=== PATIENT | female | born 1930 | race Asian ===

== ENCOUNTER 2018-01-14 12:08 | Inpatient (IN) | payer MEDICAID, OTHER ==
[~2018-01-14] VITALS: Ht 149.9 cm; Wt 70.3 kg
[~2018-01-14 12:08] MED LIST: ACTOS30 MG ORAL; CRESTOR20 MG ORAL; JANUVIA100 MG ORAL; LIDODERM700 M1 TOPIC; LORAZEPAM1 MG ORAL; MS CONTIN30 MG PO; NOVOLOG100 UNIT/3 SUBQ; OXYCODONE HCL30 MG ORAL; QUETIAPINE FUMA25 MG ORAL; RESTORIL30 MG ORAL; STARLIX120 MG PO; crestor PO; hctz PO; januvia PO; losartan PO; metoprolol PO
[2018-01-14] MEDS ORDERED: DiphenhydrAMINE 50mg/ml Inj IVP ONE (12:15)
[2018-01-14] MEDS ORDERED: Metoclopramide 10mg/2ml Inj IVP ONE (12:15)
[2018-01-14] MEDS ORDERED: NORCO 10-325 T1 EACH ORAL (12:17)
[2018-01-14] MEDS ORDERED: CYMBALTA30 MG ORAL (12:17)
[2018-01-14 12:20] VITALS: BP 201/63
--- NOTE | 2018-01-14 12:23 | Emergency Room Report ---
History of Present Illness General Chief Complaint: Altered Level of Consciousness Source: Patient, Family Member Present Illness HPI Patient presents with altered mentation. According to my staff she had to be helped into a wheelchair from the car. She was not responsive at that time however after being placed in a gurney she was able to answer questions. She complains of abdominal and genital pain. She states she's having difficulty moving her bowels. She denies any chest pain. She has anxiety. Son multiple medications at this time. She moved her bowels twice yesterday, but small amounts and hard. No fevers. Son states when she is altered this way, she usually has an UTI. She is on Seroquel and apparently did not take it last night. An Accu-Chek was done here that was 134. Allergies: Coded Allergies: CODEINE (Unverified Allergy, Unknown, 08/19/12) AYAAN INHIBITORS (Verified Allergy, 08/18/12) Patient History Past Medical History: see triage record Past Surgical History: keeley, hysterectomy, other - knee replacement Social History Narrative with her son Reviewed Nursing Documentation: PMH: Agreed; PSxH: Agreed Nursing Documentation-PMH Past Medical History: No History, Except For Hx Cardiac Problems: Yes Hx Hypertension: Yes Hx COPD: Yes Hx Diabetes: Yes Hx Cancer: No Hx Gastrointestinal Problems: Yes Hx Neurological Problems: Yes - ALOC Hx Dizziness: Yes Hx Syncope: Yes Hx Weakness: Yes Review of Systems All Other Systems: negative except mentioned in HPI Physical Exam Vital Signs Date Time Temp Pulse Resp B/P (MAP) Pulse Ox O2 Delivery O2 Flow Rate FiO2 01/14/18 12:10 98.4 68 16 201/63 97 Room Air 98.4 Sp02 EP Interpretation: reviewed, normal General Appearance: no apparent distress, lethargic, Chronically Ill Head: normocephalic, atraumatic Eyes: bilateral eye PERRL, bilateral eye other - lid twitching to touch ENT: moist mucus membranes, other - +gag Neck: supple Respiratory: lungs clear, normal breath sounds Cardiovascular #1: regular rate, rhythm Cardiovascular #2: 2+ radial (R) Gastrointestinal: normal inspection, normal bowel sounds, no mass, non- distended, tenderness - R flank and RUQ Genitourinary: no CVA tenderness Musculoskeletal: back normal, normal range of motion Neurologic: responsive - minimally initially, DTRs symmetric, sensory intact, no Babinski - withdrawal, other - flaccid initially Psychiatric: other - lethargic Skin: normal inspection, warm/dry Medical Decision Making Diagnostic Impression: Primary Impression: Altered level of consciousness Additional Impressions: Exacerbation of chronic pain Dehydration Declining functional status Constipation Qualified Codes: K59.00 - Constipation, unspecified ER Course Initially the patient was unresponsive with her eyes shut. She had a gag reflex. After being transported the gurney she was more responsive and started complaining about abdominal pain and difficulty moving her bowels. Differential includes stroke, acute myocardial infarction, constipation, electrolyte abnormality, occult infection amongst others. Her blood sugar was checked immediately and this was not the problem. Evaluation with EKG, chest x- ray, abdominal series and also labs. At this point the patient does not have a focal neurologic exam and CT is not indicated. Post keeley, therefore R flank pain not related to gall bladder. Exam is not surgical. EKG without injury. CXR no infiltrate. Labs essentially normal with no pyuria. Improved mentation with non-focal neurological exam. Cooperative and smiling. Patient requested medication for pain. Treated. Now wanting to go home. Son states not at baseline and something is wrong. Given dose of seroquel. Admit for further neurologic evaluation. Signed out to Dr. Morrison. Laboratory Tests Test 01/14/18 12:35 01/14/18 12:50 Urine Color Yellow Urine Appearance Clear Urine pH 7 (4.5-8.0) Urine Specific [place] 1.010 (1.005-1.035) Urine Protein 1+ (NEGATIVE) H Urine Glucose (UA) Negative (NEGATIVE) Urine Ketones 3+ (NEGATIVE) H Urine Occult Blood 1+ (NEGATIVE) H Urine Nitrite Negative (NEGATIVE) Urine Bilirubin Negative (NEGATIVE) Urine Urobilinogen Normal MG/DL (0.0-1.0) Urine Leukocyte Esterase Negative (NEGATIVE) Urine RBC 2-4 /HPF (0 - 2) H Urine WBC 0-2 /HPF (0 - 2) Urine Squamous Epithelial Cells Occasional /LPF Urine Bacteria Occasional /HPF (NONE) White Blood Count 9.2 K/UL (4.8-10.8) Red Blood Count 3.87 M/UL (4.20-5.40) L Hemoglobin 11.1 G/DL (12.0-16.0) L Hematocrit 34.7 % (37.0-47.0) L Mean Corpuscular Volume 90 FL (80-99) Mean Corpuscular Hemoglobin 28.7 PG (27.0-31.0) Mean Corpuscular Hemoglobin Concent 32.0 G/DL (32.0-36.0) Red Cell Distribution Width 12.7 % (11.6-14.8) Platelet Count 360 K/UL (150-450) Mean Platelet Volume 5.2 FL (6.5-10.1) L Neutrophils (%) (Auto) 72.0 % (45.0-75.0) Lymphocytes (%) (Auto) 20.5 % (20.0-45.0) Monocytes (%) (Auto) 5.3 % (1.0-10.0) Eosinophils (%) (Auto) 1.5 % (0.0-3.0) Basophils (%) (Auto) 0.7 % (0.0-2.0) Prothrombin Time 10.4 SEC (9.30-11.50) Prothrombin Time INR 1.0 (0.9-1.1) PTT 34 SEC (23-33) H Sodium Level 135 MMOL/L (136-145) L Potassium Level 4.1 MMOL/L (3.5-5.1) Chloride Level 101 MMOL/L (98-107) Carbon Dioxide Level 22 MMOL/L (21-32) Anion Gap 12 mmol/L (5-15) Blood Urea Nitrogen 19 mg/dL (7-18) H Creatinine 1.1 MG/DL (0.55-1.30) Estimate Glomerular Filtration Rate mL/min (>60) Glucose Level 153 MG/DL (74-106) H Calcium Level 8.7 MG/DL (8.5-10.1) Total Bilirubin 0.7 MG/DL (0.2-1.0) Aspartate Amino Transferase (AST) 53 U/L (15-37) H Alanine Aminotransferase (ALT) 20 U/L (12-78) Alkaline Phosphatase 159 U/L (46-116) H Troponin I 0.005 ng/mL (0.000-0.056) Total Protein 8.3 G/DL (6.4-8.2) H Albumin 3.4 G/DL (3.4-5.0) Globulin 4.9 g/dL Albumin/Globulin Ratio 0.7 (1.0-2.7) L Lipase 53 U/L (73-393) L EKG Diagnostic Results Rate: normal Rhythm: NSR ST Segments: no acute changes Rhythm Strip Diag. Results EP Interpretation: yes Rhythm: NSR, no PVC's, no ectopy Chest X-Ray Diagnostic Results Chest X-Ray Diagnostic Results : Chest X-Ray Ordered: Yes # of Views/Limited/Complete: 1 View Indication: Other EP Interpretation: Yes Interpretation: no consolidation, no effusion, no pneumothorax Impression: No acute disease Electronically Signed by: Ernesto Golden MD Other X-Ray Diagnostic Results Other X-Ray Diagnostic Results : X-Ray ordered: abd # of Views/Limited Vs Complete: 1 View Indication: Pain Interpretation: nonspecific bowel gas, no sbo, other - inc stool Impression: Other Electronically Signed by: Ernesto Golden MD Last Vital Signs Date Time Temp Pulse Resp B/P (MAP) Pulse Ox O2 Delivery O2 Flow Rate FiO2 01/14/18 22:12 97.9 66 20 172/95 94 97.9 01/14/18 17:20 Room Air Status: improved Disposition: ADMITTED INPATIENT Condition: Serious Ernesto Golden M.D. January 14, 2018 12:23
[2018-01-14 13:04] LABS: BASOPHILS % (AUTO) 0.7 % (0.0-2.0); EOSINOPHILS % (AUTO) 1.5 % (0.0-3.0); HEMATOCRIT 34.7 % (37.0-47.0); HEMOGLOBIN 11.1 G/DL (12.0-16.0); LYMPHOCYTES % (AUTO) 20.5 % (20.0-45.0); MEAN CORPUSCULAR VOLUME 90 FL (80-99); MONOCYTES % (AUTO) 5.3 % (1.0-10.0); PLATELET COUNT 360 K/UL (150-450); RED BLOOD COUNT 3.87 M/UL (4.20-5.40); RED CELL DISTRIBUTION WIDTH 12.7 % (11.6-14.8); WHITE BLOOD COUNT 9.2 K/UL (4.8-10.8)
[2018-01-14 13:17] LABS: APPEARANCE,URINE CLEAR; BILIRUBIN, URINE NEGATIVE (NEGATIVE); GLUCOSE, URINE (UA) NEGATIVE (NEGATIVE); KETONES,URINE 3+ (NEGATIVE); LEUKOCYTE ESTERASE ,URINE NEGATIVE (NEGATIVE); NITRITE,URINE NEGATIVE (NEGATIVE); PH,URINE 7 (4.5-8.0); PROTEIN,URINE 1+ (NEGATIVE); UROBILINOGEN,URINE NORMAL MG/DL (0.0-1.0)
[2018-01-14 13:21] LABS: COLOR,URINE YELLOW
[2018-01-14 13:26] LABS: ANION GAP 12 mmol/L (5-15); BLOOD UREA NITROGEN 19 mg/dL (7-18); CALCIUM 8.7 MG/DL (8.5-10.1); CARBON DIOXIDE 22 MMOL/L (21-32); CHLORIDE 101 MMOL/L (98-107); CREATININE 1.1 MG/DL (0.55-1.30); POTASSIUM 4.1 MMOL/L (3.5-5.1); SODIUM 135 MMOL/L (136-145)
--- NOTE | 2018-01-14 13:26 | Diagnostic Imaging Report ---
Indication: Pain Technique: XRAY Abdomen 1v Comparison: None Findings: Nonspecific, not overtly obstructive bowel gas pattern. No evidence to suggest free intraperitoneal air. There are degenerative changes in the spine. No acute osseous abnormality seen. There are some pelvic phleboliths. Imaged lung bases are grossly clear. There are atherosclerotic calcifications. IMPRESSION: Nonspecific, not overtly obstructive bowel gas pattern.
--- NOTE | 2018-01-14 13:27 | Diagnostic Imaging Report ---
Indication: Pain Technique: XRAY Chest 1v Comparison: 04/14/2013 Findings: Stable cardiomegaly. Atherosclerotic calcifications noted. There is nonspecific increased interstitial markings, similar to prior exams. No definite focal airspace consolidation, pleural effusion or pneumothorax. No acute osseous abnormality. IMPRESSION: No radiographic evidence of acute cardiopulmonary disease
[2018-01-14 13:30] LABS: ALANINE AMINOTRANSFERASE 20 U/L (12-78); ALBUMIN 3.4 G/DL (3.4-5.0); ALBUMIN/GLOBULIN RATIO 0.7 (1.0-2.7); ALKALINE PHOSPHATASE 159 U/L (46-116); ASPARTATE AMINO TRANSFERASE 53 U/L (15-37); BILIRUBIN,TOTAL 0.7 MG/DL (0.2-1.0)
[2018-01-14 14:15] VITALS: BP 162/51
[2018-01-14] MEDS ORDERED: Morphine Sulfate 4mg/ml Inj IVP ONE (14:45)
[2018-01-14 17:20] VITALS: BP 163/58
[2018-01-14] MEDS ORDERED: Isovue-300 100ml vial INJ PRN (20:15)
[2018-01-14 22:12] VITALS: BP 172/95
--- NOTE | 2018-01-14 22:51 | Consultation ---
History of Present Illness General Date patient seen: January 14, 2018 Chief Complaint: Altered Level of Consciousness Reason for Consultation: abdominal pain Present Illness HPI 87F presented to ED after she was noted to be with altered mental status by her son. She required assistance and was able initially participate with directions and care which is not her baseline. does have history of dementia and has had similar episodes prior. per report her son says usually this happens when she has a UTI. during this time she was complaining of abdominal pain. she has been constipated for some time now and had two hard BM's yesterday but none today. surgery called to evaluate for abdominal pain. patient seen and examined. by the time I had arrived patient was more responsive and not as altered. she stated she is having "pain all over" including some abdominal pain. no n/v/f/c. abdominal pain cramping but improving. Allergies: Coded Allergies: CODEINE (Unverified Allergy, Unknown, 08/19/12) AYAAN INHIBITORS (Verified Allergy, 08/18/12) Medication History Scheduled Duloxetine Hcl* (Cymbalta*), 30 MG ORAL DAILY, (Reported) Quetiapine Fumarate* (Seroquel*), 25 MG ORAL HS, (Reported) Temazepam (Restoril*), 30 MG ORAL BEDTIME, (Reported) [hctz], PO DAILY, (Reported) [losartan], 100 MG PO DAILY, (Reported) [metoprolol], 50 MG PO Q12HR, (Reported) Scheduled PRN Hydrocodone Bit/Acetaminophen 10-325* (Vincent 10-325*), 2 TAB ORAL Q6H PRN for For Pain, (Reported) Miscellaneous Medications Lidocaine (Lidoderm), 1 PATCH TOPIC, (Reported) Discontinued Medications Insulin Aspart* (Novolog*), 0 SUBQ, (Reported) Discontinued Reason: Pt stopped taking med Lorazepam* (Lorazepam*), 1 MG ORAL PRN, (Reported) Discontinued Reason: Pt stopped taking med Morphine Sulfate* (Ms Contin*), 30 MG PO EVERY 12 HOURS, (Reported) Discontinued Reason: Pt stopped taking med Nateglinide (Starlix), 120 MG PO TID, (Reported) Discontinued Reason: Pt stopped taking med Oxycodone Hcl (Oxycodone Hcl), 15 MG ORAL FIVE TIMES A DAY, (Reported) Discontinued Reason: Pt stopped taking med Pioglitazone Hcl* (Actos*), 30 MG ORAL DAILY, (Reported) Discontinued Reason: Pt stopped taking med Rosuvastatin Calcium* (Crestor*), 20 MG ORAL DAILY, (Reported) Discontinued Reason: Pt stopped taking med Sitagliptin (Januvia), 100 MG ORAL DAILY, (Reported) Discontinued Reason: Pt stopped taking med Patient History Limited by: medical condition History Provided By: Patient, Medical Record, Caregiver, PMD Healthcare decision maker Resuscitation status Advanced Directive on File Past Medical/Surgical History Past Medical/Surgical History: (1) Abdominal pain (2) Constipation (3) Dehydration (4) Declining functional status (5) Altered level of consciousness Review of Systems Constitutional: Reports: malaise, weakness Gastrointestinal: Reports: abdominal pain, constipation All Other Systems: negative except mentioned in HPI Physical Exam General Appearance: no apparent distress, alert Lines, tubes and drains: peripheral HEENT: atraumatic Neck: normal inspection Respiratory/Chest: normal breath sounds, no respiratory distress, no accessory muscle use Cardiovascular/Chest: normal peripheral pulses Abdomen: normal bowel sounds, non tender, soft, no organomegaly, no mass, distended Extremities: normal inspection Skin Exam: normal pigmentation Neurologic: alert, responsive Last 24 Hour Vital Signs Date Time Temp Pulse Resp B/P (MAP) Pulse Ox O2 Delivery O2 Flow Rate FiO2 01/14/18 22:12 97.9 66 20 172/95 94 97.9 01/14/18 21:00 98.2 66 21 163/58 100 Room Air 98.2 01/14/18 17:20 98.2 66 21 163/58 100 Room Air 98.2 01/14/18 15:15 98.2 01/14/18 14:45 98.3 01/14/18 14:15 98.3 60 23 162/51 99 Room Air 98.3 01/14/18 12:20 98.4 69 19 201/63 96 Room Air 98.4 01/14/18 12:10 98.4 68 16 201/63 97 Room Air 98.4 Laboratory Tests Test 01/14/18 12:35 01/14/18 12:50 Urine Color Yellow Urine Appearance Clear Urine pH 7 (4.5-8.0) Urine Specific [place] 1.010 (1.005-1.035) Urine Protein 1+ (NEGATIVE) H Urine Glucose (UA) Negative (NEGATIVE) Urine Ketones 3+ (NEGATIVE) H Urine Occult Blood 1+ (NEGATIVE) H Urine Nitrite Negative (NEGATIVE) Urine Bilirubin Negative (NEGATIVE) Urine Urobilinogen Normal MG/DL (0.0-1.0) Urine Leukocyte Esterase Negative (NEGATIVE) Urine RBC 2-4 /HPF (0 - 2) H Urine WBC 0-2 /HPF (0 - 2) Urine Squamous Epithelial Cells Occasional /LPF Urine Bacteria Occasional /HPF (NONE) White Blood Count 9.2 K/UL (4.8-10.8) Red Blood Count 3.87 M/UL (4.20-5.40) L Hemoglobin 11.1 G/DL (12.0-16.0) L Hematocrit 34.7 % (37.0-47.0) L Mean Corpuscular Volume 90 FL (80-99) Mean Corpuscular Hemoglobin 28.7 PG (27.0-31.0) Mean Corpuscular Hemoglobin Concent 32.0 G/DL (32.0-36.0) Red Cell Distribution Width 12.7 % (11.6-14.8) Platelet Count 360 K/UL (150-450) Mean Platelet Volume 5.2 FL (6.5-10.1) L Neutrophils (%) (Auto) 72.0 % (45.0-75.0) Lymphocytes (%) (Auto) 20.5 % (20.0-45.0) Monocytes (%) (Auto) 5.3 % (1.0-10.0) Eosinophils (%) (Auto) 1.5 % (0.0-3.0) Basophils (%) (Auto) 0.7 % (0.0-2.0) Prothrombin Time 10.4 SEC (9.30-11.50) Prothromb Time International Ratio 1.0 (0.9-1.1) Activated Partial Thromboplast Time 34 SEC (23-33) H Sodium Level 135 MMOL/L (136-145) L Potassium Level 4.1 MMOL/L (3.5-5.1) Chloride Level 101 MMOL/L (98-107) Carbon Dioxide Level 22 MMOL/L (21-32) Anion Gap 12 mmol/L (5-15) Blood Urea Nitrogen 19 mg/dL (7-18) H Creatinine 1.1 MG/DL (0.55-1.30) Estimat Glomerular Filtration Rate mL/min (>60) Glucose Level 153 MG/DL (74-106) H Calcium Level 8.7 MG/DL (8.5-10.1) Total Bilirubin 0.7 MG/DL (0.2-1.0) Aspartate Amino Transf (AST/SGOT) 53 U/L (15-37) H Alanine Aminotransferase (ALT/SGPT) 20 U/L (12-78) Alkaline Phosphatase 159 U/L (46-116) H Troponin I 0.005 ng/mL (0.000-0.056) Total Protein 8.3 G/DL (6.4-8.2) H Albumin 3.4 G/DL (3.4-5.0) Globulin 4.9 g/dL Albumin/Globulin Ratio 0.7 (1.0-2.7) L Lipase 53 U/L (73-393) L Height (Feet): 4 Height (Inches): 11.00 Weight (Pounds): 140 Medications Current Medications Medications (Trade) Dose Ordered Sig/Suze Route PRN Reason Start Time Stop Time Status Last Admin Dose Admin Iopamidol (Isovue-300 100ml) 100 ml NOW PRN INJ Radiology Procedure 01/14/18 20:15 Sodium Chloride 1,000 ml @ 300 mls/hr Q3H20M IV 01/14/18 12:15 02/13/18 12:14 01/14/18 12:42 Assessment/Plan Problem List: (1) Abdominal pain Assessment & Plan: 87F with generalized abdominal pain. improving since presentation to ED. mental status improved. states vague generalized abdominal pain. exam benign. KUB reviewed and non specific. unfortunately she and her exam are not very reliable but overall seem benign no acute surgical intervention planned likely constipation bowel regimen okay for diet will follow with recs thank you ICD Codes: R10.9 - Unspecified abdominal pain SNOMED: [id number] Qualifiers: Qualified Codes: R10.84 - Generalized abdominal pain Status: stable Angel Stubbs January 14, 2018 22:51
[2018-01-14] MEDS: Metoprolol Tartrate 50mg tab ORAL SCH (23:59)
[2018-01-15] VITALS (9 sets, daily range): BP systolic 137–172; BP diastolic 56–76
--- NOTE | 2018-01-15 01:45 | History and Physical Report ---
DATE OF ADMISSION: 01/14/2018 HISTORY OF PRESENT ILLNESS: This is an 87-year-old female who history. She is admitted to the hospital with a report that she was altered per her son. The patient is unable to provide any history, has a history of dementia. The patient was also noted to have abdominal pain. She also was constipated. PAST SURGICAL HISTORY: Previous surgeries, none reported. MEDICATIONS: Home medications, Seroquel, Cymbalta, Restoril, hydrochlorothiazide, losartan, metoprolol. She is also on Arnold and lidocaine patches. ALLERGIES: Codeine and AYAAN inhibitors. REVIEW OF SYSTEMS: Unreliable. PHYSICAL EXAMINATION: HEENT: Unremarkable. LUNGS: Clear breath sounds bilaterally. ABDOMEN: Soft. There is no edema. NEUROLOGIC: Nonfocal. VITAL SIGNS: Blood pressure is 170/90, heart rate 84, respirations 18 and afebrile. LABORATORY AND DIAGNOSTIC DATA: Lab testing shows negative urinalysis. Chemistry is notable for glucose 153, BUN 19, and sodium 135. Coagulation studies are negative. Hematology is normal. Urinalysis negative. Imaging studies per report is negative. IMPRESSION: 1. Abdominal pain. 2. Constipation. 3. Dementia. 4. Borderline diabetes mellitus. 5. Hypertension. DISCUSSION: Admit to the hospital. The patient will be put on clear liquid diet. SCDs. We will observe. Bowel regimen per Dr. Stubbs. We will follow carefully as craft manager. Roddy Bullock M.D. DR: JOSE JOB#: [id number] CC:
[2018-01-15] MEDS: NovoLOG Insulin Flexpen SUBQ SCH ×4 (06:01→20:44)
[2018-01-15] MEDS: Norco 5mg/325mg tab ORAL PRN ×2 (06:27→19:51)
[2018-01-15 08:09] LABS: BASOPHILS % (AUTO) 0.5 % (0.0-2.0); HEMATOCRIT 32.3 % (37.0-47.0); HEMOGLOBIN 10.4 G/DL (12.0-16.0); LYMPHOCYTES % (AUTO) 15.3 % (20.0-45.0); MEAN CORPUSCULAR VOLUME 91 FL (80-99); MONOCYTES % (AUTO) 2.7 % (1.0-10.0); NEUTROPHILS % (AUTO) 81.5 % (45.0-75.0); PLATELET COUNT 269 K/UL (150-450); RED BLOOD COUNT 3.56 M/UL (4.20-5.40); RED CELL DISTRIBUTION WIDTH 12.6 % (11.6-14.8)
[2018-01-15 08:27] LABS: ANION GAP 12 mmol/L (5-15); BLOOD UREA NITROGEN 18 mg/dL (7-18); CALCIUM 8.2 MG/DL (8.5-10.1); CARBON DIOXIDE 21 MMOL/L (21-32); CHLORIDE 103 MMOL/L (98-107); CREATININE 1.1 MG/DL (0.55-1.30); POTASSIUM 4.2 MMOL/L (3.5-5.1); SODIUM 136 MMOL/L (136-145)
[2018-01-15] MEDS: DULoxetine 30mg cap ORAL SCH (08:36)
[2018-01-15] MEDS: Losartan 50mg tab ORAL SCH (08:44)
[2018-01-15] MEDS: Metoprolol Tartrate 50mg tab ORAL SCH ×2 (08:44→17:23)
--- NOTE | 2018-01-15 10:36 | Diagnostic Imaging Report ---
Clinical Indication: Abdominal pain Technique: No oral contrast utilized, per emergency room physician request IV administration nonionic contrast. Venous phase spiral acquisition obtained through the abdomen and pelvis. Multiplanar reconstructions were generated. Total dose length product 630.82 mGycm. CTDIvol(s) 13.11 mGy. Dose reduction achieved using automated exposure control Comparison: 02/15/2009 Findings: The appendix is not definitely visualized, but no findings to suggest acute appendicitis are evident. There are a few colonic diverticula. There is no evidence of diverticulitis. No small bowel distention. No free or loculated intraperitoneal air or fluid is evident. Distal esophagus demonstrates a small sliding-type hiatal hernia. The stomach is otherwise unremarkable. The duodenum is unremarkable. The gallbladder is surgically absent. There is marked dilatation of the common bile duct, common hepatic duct, cystic duct remnant, and central intrahepatic ducts, with the common hepatic duct measuring up to 23 mm in diameter. Similar findings are also evident on the prior study, however, and there is no evidence of downstream obstructive lesion. No focal hepatic abnormality demonstrated. The pancreas is atrophic. The spleen, adrenals, kidneys are unremarkable. No retroperitoneal or mesenteric mass or adenopathy. No pelvic mass or adenopathy. The uterus is again demonstrated be absent, presumably postsurgically. The bladder wall appears less thickened than on the prior study. There is a small fat-containing right inguinal hernia, not evident previously. The included lung bases demonstrate areas of scarring and atelectasis as well as some bronchiectasis. The bones demonstrate mild degenerative spondylosis changes. Impression: No acute abnormality Colonic diverticulosis. No evidence of diverticulitis Surgically absent gallbladder. Marked intrahepatic and extrahepatic biliary ductal dilatation is probably baseline for this patient, as it is evident on the prior exam 2008 and now downstream obstructive lesion is demonstrated Incidental findings as noted, including degenerative spondylosis, basilar pulmonary parenchymal atelectasis scarring and bronchiectasis, small fat-containing right inguinal hernia, pancreatic atrophy, prior hysterectomy, small sliding-type hiatal hernia This agrees with the preliminary interpretation provided overnight by [employer] teleradiology service. The CT scanner at [facility] is accredited by the [employer] and the scans are performed using protocols designed to limit radiation exposure to as low as reasonably achievable to attain images of sufficient resolution adequate for diagnostic evaluation.
--- NOTE | 2018-01-15 11:01 | Pulmonology Progress Note ---
Assessment/Plan Assessment/Plan IMPRESSION: 1. Abdominal pain. 2. Constipation. 3. Dementia. 4. Borderline diabetes mellitus. 5. Hypertension. DISCUSSION: Admit to the hospital. SCDs. Advance diet DC planning to SNF Bowel regimen per Dr. Stubbs. 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 Subjective Interval Events: None Constitutional: Reports: no symptoms HEENT: Repors: no symptoms Respiratory: Reports: no symptoms Cardiovascular: Reports: no symptoms Gastrointestinal/Abdominal: Reports: no symptoms Allergies: Coded Allergies: CODEINE (Unverified Allergy, Unknown, 08/19/12) AYAAN INHIBITORS (Verified Allergy, 08/18/12) Objective Last 24 Hour Vital Signs Date Time Temp Pulse Resp B/P (MAP) Pulse Ox O2 Delivery O2 Flow Rate FiO2 01/15/18 08:44 70 137/59 01/15/18 08:44 137/59 01/15/18 08:00 99.0 70 18 137/59 99.0 01/15/18 06:27 97.8 01/15/18 04:47 Room Air 01/15/18 04:45 97.8 65 20 148/74 94 97.8 01/15/18 00:58 97.5 63 18 160/73 96 Room Air 97.5 01/14/18 23:59 66 172/95 01/14/18 22:12 97.9 66 20 172/95 94 97.9 01/14/18 21:00 98.2 66 21 163/58 100 Room Air 98.2 01/14/18 17:20 98.2 66 21 163/58 100 Room Air 98.2 01/14/18 15:15 98.2 01/14/18 14:45 98.3 01/14/18 14:15 98.3 60 23 162/51 99 Room Air 98.3 01/14/18 12:20 98.4 69 19 201/63 96 Room Air 98.4 01/14/18 12:10 98.4 68 16 201/63 97 Room Air 98.4 Intake and Output 01/14/18 01/15/18 19:00 07:00 Intake Total 1000 ml 150 ml Balance 1000 ml 150 ml IV Total 1000 ml 150 ml # Voids 1 5 General Appearance: no acute distress HEENT: normocephalic Respiratory/Chest: chest wall non-tender, lungs clear Cardiovascular: normal peripheral pulses Abdomen: normal bowel sounds Laboratory Tests 01/14/18 12:35: Urine Color Yellow, Urine Appearance Clear, Urine pH 7, Urine Specific [place] 1.010, Urine Protein 1+H, Urine Glucose (UA) Negative, Urine Ketones 3+H, Urine Occult Blood 1+H, Urine Nitrite Negative, Urine Bilirubin Negative, Urine Urobilinogen Normal, Urine Leukocyte Esterase Negative, Urine RBC 2-4H, Urine WBC 0-2, Urine Squamous Epithelial Cells Occasional, Urine Bacteria Occasional 01/14/18 12:50: White Blood Count 9.2, Red Blood Count 3.87L, Hemoglobin 11.1L, Hematocrit 34.7L , Mean Corpuscular Volume 90, Mean Corpuscular Hemoglobin 28.7, Mean Corpuscular Hemoglobin Concent 32.0, Red Cell Distribution Width 12.7, Platelet Count 360, Mean Platelet Volume 5.2L, Neutrophils (%) (Auto) 72.0, Lymphocytes ( %) (Auto) 20.5, Monocytes (%) (Auto) 5.3, Eosinophils (%) (Auto) 1.5, Basophils (%) (Auto) 0.7, Prothrombin Time 10.4, Prothromb Time International Ratio 1.0, Activated Partial Thromboplast Time 34H, Sodium Level 135L, Potassium Level 4.1 , Chloride Level 101, Carbon Dioxide Level 22, Anion Gap 12, Blood Urea Nitrogen 19H, Creatinine 1.1, Estimat Glomerular Filtration Rate , Glucose Level 153H, Calcium Level 8.7, Total Bilirubin 0.7, Aspartate Amino Transf (AST/ SGOT) 53H, Alanine Aminotransferase (ALT/SGPT) 20, Alkaline Phosphatase 159H, Troponin I 0.005, Total Protein 8.3H, Albumin 3.4, Globulin 4.9, Albumin/ Globulin Ratio 0.7L, Lipase 53L 01/15/18 07:40: White Blood Count 9.0, Red Blood Count 3.56L, Hemoglobin 10.4L, Hematocrit 32.3L , Mean Corpuscular Volume 91, Mean Corpuscular Hemoglobin 29.2, Mean Corpuscular Hemoglobin Concent 32.2, Red Cell Distribution Width 12.6, Platelet Count 269, Mean Platelet Volume 5.9L, Neutrophils (%) (Auto) 81.5H, Lymphocytes (%) (Auto) 15.3L, Monocytes (%) (Auto) 2.7, Eosinophils (%) (Auto) 0.0, Basophils (%) (Auto) 0.5, Sodium Level 136, Potassium Level 4.2, Chloride Level 103, Carbon Dioxide Level 21, Anion Gap 12, Blood Urea Nitrogen 18, Creatinine 1.1, Estimat Glomerular Filtration Rate , Glucose Level 142H, Calcium Level 8.2L Current Medications Medications (Trade) Dose Ordered Sig/Suze Route PRN Reason Start Time Stop Time Status Last Admin Dose Admin Acetaminophen/ Hydrocodone Bitart ([place] 5/325) 1 tab Q6H PRN ORAL For Pain 01/14/18 23:15 01/21/18 23:14 01/15/18 06:27 Clonidine HCl (Catapres Tab) 0.1 mg EVERY 6 HOURS PRN ORAL For SBP>150 01/14/18 23:15 02/13/18 23:14 Dextrose (Dextrose 50%) 25 ml STAT PRN IV Hypoglycemia 01/14/18 23:15 02/13/18 23:14 Dextrose (Dextrose 50%) 50 ml STAT PRN IV Hypoglycemia 01/14/18 23:15 02/13/18 23:14 Duloxetine HCl (Cymbalta) 30 mg DAILY ORAL 01/15/18 09:00 02/14/18 08:59 01/15/18 08:36 Insulin Aspart (NovoLOG) BEFORE MEALS AND HS SUBQ 01/15/18 06:30 02/14/18 06:29 01/15/18 06:01 Iopamidol (Isovue-300 100ml) 100 ml NOW PRN INJ Radiology Procedure 01/14/18 20:15 Lidocaine (Lidoderm 5% PATCH) 1 patch DAILY TDERMAL 01/15/18 09:00 02/14/18 08:59 01/15/18 08:38 Losartan Potassium (Cozaar) 100 mg DAILY ORAL 01/15/18 09:00 02/14/18 08:59 01/15/18 08:44 Metoprolol Tartrate (Lopressor) 50 mg BID ORAL 01/14/18 23:45 02/13/18 23:44 01/14/18 23:59 Ondansetron HCl (Zofran) 4 mg Q6H PRN IVP Nausea & Vomiting 01/14/18 23:15 02/13/18 23:14 01/14/18 23:59 Quetiapine Fumarate (SEROquel) 25 mg BEDTIME ORAL 01/14/18 23:44 02/13/18 23:43 01/14/18 23:59 Sodium Chloride 1,000 ml @ 50 mls/hr Q20H IV 01/14/18 23:15 02/13/18 23:14 01/15/18 00:00 Temazepam (Restoril) 30 mg BEDTIME ORAL 01/14/18 23:45 01/21/18 23:44 01/14/18 23:59 Roddy Bullock MD January 15, 2018 11:01
--- NOTE | 2018-01-15 14:29 | General Surgery Progress Note ---
General Surgery-Progress Note Subjective Symptoms: improved, pain absent, tolerating diet, passing flatus Additional Comments no n/v/f/c. headache Objective Last 24 Hour Vital Signs Date Time Temp Pulse Resp B/P (MAP) Pulse Ox O2 Delivery O2 Flow Rate FiO2 01/15/18 13:30 172/66 01/15/18 13:30 72 172/66 01/15/18 13:25 72 164/68 01/15/18 11:40 97.7 60 18 145/73 97.7 01/15/18 08:44 70 137/59 01/15/18 08:44 137/59 01/15/18 08:00 99.0 70 18 137/59 99.0 01/15/18 06:27 97.8 01/15/18 04:47 Room Air 01/15/18 04:45 97.8 65 20 148/74 94 97.8 01/15/18 00:58 97.5 63 18 160/73 96 Room Air 97.5 01/14/18 23:59 66 172/95 01/14/18 22:12 97.9 66 20 172/95 94 97.9 01/14/18 21:00 98.2 66 21 163/58 100 Room Air 98.2 01/14/18 17:20 98.2 66 21 163/58 100 Room Air 98.2 01/14/18 15:15 98.2 01/14/18 14:45 98.3 I&O Intake and Output 01/14/18 01/15/18 19:00 07:00 Intake Total 1000 ml 150 ml Balance 1000 ml 150 ml IV Total 1000 ml 150 ml # Voids 1 5 Drains: none Cardiovascular: RSR Respiratory: clear Abdomen: soft, flat, non-tender, present bowel sounds Extremities: no cyanosis Laboratory Tests Test 01/15/18 07:40 White Blood Count 9.0 K/UL (4.8-10.8) Red Blood Count 3.56 M/UL (4.20-5.40) L Hemoglobin 10.4 G/DL (12.0-16.0) L Hematocrit 32.3 % (37.0-47.0) L Mean Corpuscular Volume 91 FL (80-99) Mean Corpuscular Hemoglobin 29.2 PG (27.0-31.0) Mean Corpuscular Hemoglobin Concent 32.2 G/DL (32.0-36.0) Red Cell Distribution Width 12.6 % (11.6-14.8) Platelet Count 269 K/UL (150-450) Mean Platelet Volume 5.9 FL (6.5-10.1) L Neutrophils (%) (Auto) 81.5 % (45.0-75.0) H Lymphocytes (%) (Auto) 15.3 % (20.0-45.0) L Monocytes (%) (Auto) 2.7 % (1.0-10.0) Eosinophils (%) (Auto) 0.0 % (0.0-3.0) Basophils (%) (Auto) 0.5 % (0.0-2.0) Sodium Level 136 MMOL/L (136-145) Potassium Level 4.2 MMOL/L (3.5-5.1) Chloride Level 103 MMOL/L (98-107) Carbon Dioxide Level 21 MMOL/L (21-32) Anion Gap 12 mmol/L (5-15) Blood Urea Nitrogen 18 mg/dL (7-18) Creatinine 1.1 MG/DL (0.55-1.30) Estimat Glomerular Filtration Rate mL/min (>60) Glucose Level 142 MG/DL (74-106) H Calcium Level 8.2 MG/DL (8.5-10.1) L Plan Problems: (1) Abdominal pain Assessment & Plan: 87F with generalized abdominal pain. improving since presentation to ED. mental status improved. states vague generalized abdominal pain. exam benign. KUB reviewed and non specific. unfortunately she and her exam are not very reliable but overall seem benign CT reviewed and no acute path noted. hernia stable. biliary dilation stable. no acute surgical intervention planned likely constipation bowel regimen okay for diet okay to d/c from surgical standpoint thank you Angel Stubbs January 15, 2018 14:29
[2018-01-15] MEDS ORDERED: Sennosides 8.6mg ORAL PRN (14:30)
--- NOTE | 2018-01-15 14:37 | Cardiology Report ---
APPROVED REPORT EKG Measurement Heart [id number] Normal sinus rhythm Cannot rule out Anterior infarct, age undetermined Abnormal ECG
[2018-01-15] MEDS: Docusate 100mg cap ORAL SCH ×2 (15:00→17:21)
[2018-01-16] VITALS (8 sets, daily range): BP systolic 143–176; BP diastolic 61–82
[2018-01-16] MEDS: Norco 5mg/325mg tab ORAL PRN ×3 (02:40→17:37)
[2018-01-16] MEDS: NovoLOG Insulin Flexpen SUBQ SCH ×4 (06:27→20:28)
[2018-01-16] MEDS: DULoxetine 30mg cap ORAL SCH (08:04)
[2018-01-16] MEDS: Docusate 100mg cap ORAL SCH ×4 (08:04→17:08)
[2018-01-16] MEDS: Metoprolol Tartrate 50mg tab ORAL SCH ×2 (08:04→17:37)
[2018-01-16] MEDS: Losartan 50mg tab ORAL SCH (08:05)
--- NOTE | 2018-01-16 08:10 | Pulmonology Progress Note ---
Assessment/Plan Assessment/Plan IMPRESSION: 1. Abdominal pain. Improved. CT neg 2. Constipation. 3. Dementia. 4. Borderline diabetes mellitus. 5. Hypertension. DISCUSSION: Admit to the hospital. SCDs. Advance diet Will consult GI Subjective Interval Events: Feeling better; had emesis yesterday; none last night Constitutional: Reports: no symptoms HEENT: Repors: no symptoms Respiratory: Reports: no symptoms Cardiovascular: Reports: no symptoms Gastrointestinal/Abdominal: Reports: no symptoms Genitourinary: Reports: no symptoms Allergies: Coded Allergies: CODEINE (Unverified Allergy, Unknown, 08/19/12) AYAAN INHIBITORS (Verified Allergy, 08/18/12) Objective Last 24 Hour Vital Signs Date Time Temp Pulse Resp B/P (MAP) Pulse Ox O2 Delivery O2 Flow Rate FiO2 01/16/18 08:05 143/63 01/16/18 08:04 73 143/63 01/16/18 03:44 97.2 64 20 150/61 96 Room Air 97.2 01/16/18 03:39 97.2 01/16/18 02:40 98.2 01/15/18 20:31 161/56 01/15/18 19:51 98.2 01/15/18 19:13 98.2 62 20 161/56 95 Room Air 98.2 01/15/18 17:23 63 165/73 01/15/18 15:36 97.5 63 18 165/73 97.5 01/15/18 15:36 97.5 63 18 165/73 97.5 01/15/18 14:38 62 168/76 01/15/18 13:30 172/66 01/15/18 13:30 72 172/66 01/15/18 13:25 72 164/68 01/15/18 11:40 97.7 60 18 145/73 94 97.7 01/15/18 08:44 70 137/59 01/15/18 08:44 137/59 Intake and Output 01/15/18 01/16/18 19:00 07:00 Intake Total 1090 ml Balance 1090 ml Intake Oral 540 ml IV Total 550 ml # Voids 4 3 # Bowel Movements 2 1 General Appearance: no acute distress HEENT: normocephalic Respiratory/Chest: chest wall non-tender, lungs clear Cardiovascular: normal peripheral pulses, normal rate Abdomen: normal bowel sounds Current Medications Medications (Trade) Dose Ordered Sig/Suze Route PRN Reason Start Time Stop Time Status Last Admin Dose Admin Acetaminophen/ Hydrocodone Bitart ([place] 5/325) 1 tab Q6H PRN ORAL For Pain 01/14/18 23:15 01/21/18 23:14 01/16/18 02:40 Clonidine HCl (Catapres Tab) 0.1 mg EVERY 6 HOURS PRN ORAL For SBP>150 01/14/18 23:15 02/13/18 23:14 01/15/18 20:31 Dextrose (Dextrose 50%) 25 ml STAT PRN IV Hypoglycemia 01/14/18 23:15 02/13/18 23:14 Dextrose (Dextrose 50%) 50 ml STAT PRN IV Hypoglycemia 01/14/18 23:15 02/13/18 23:14 Docusate Sodium (Colace) 100 mg THREE TIMES A DAY ORAL 01/15/18 15:00 02/14/18 14:59 Duloxetine HCl (Cymbalta) 30 mg DAILY ORAL 01/15/18 09:00 02/14/18 08:59 01/16/18 08:04 Insulin Aspart (NovoLOG) BEFORE MEALS AND HS SUBQ 01/15/18 06:30 02/14/18 06:29 01/16/18 06:27 Iopamidol (Isovue-300 100ml) 100 ml NOW PRN INJ Radiology Procedure 01/14/18 20:15 Lidocaine (Lidoderm 5% PATCH) 1 patch DAILY TDERMAL 01/15/18 09:00 02/14/18 08:59 01/16/18 08:03 Losartan Potassium (Cozaar) 100 mg DAILY ORAL 01/15/18 09:00 02/14/18 08:59 01/16/18 08:05 Metoprolol Tartrate (Lopressor) 50 mg BID ORAL 01/14/18 23:45 02/13/18 23:44 01/16/18 08:04 Ondansetron HCl (Zofran) 4 mg Q4H PRN IVP Nausea & Vomiting 01/15/18 14:45 02/14/18 14:44 01/15/18 18:28 Quetiapine Fumarate (SEROquel) 25 mg BEDTIME ORAL 01/14/18 23:44 02/13/18 23:43 01/15/18 20:31 Sennosides (Senokot) 1 tab DAILYPRN PRN ORAL Constipation 01/15/18 14:30 02/14/18 14:29 Sodium Chloride 1,000 ml @ 50 mls/hr Q20H IV 01/14/18 23:15 02/13/18 23:14 01/15/18 17:22 Temazepam (Restoril) 30 mg BEDTIME ORAL 01/14/18 23:45 01/21/18 23:44 01/15/18 20:30 Roddy Bullock MD January 16, 2018 08:10
--- NOTE | 2018-01-16 11:51 | GI Initial Consult Note ---
History of Present Illness General Date patient seen: January 16, 2018 Time patient seen: 12:00 Reason for Hospitalization: Altered Level of Consciousness Referring physician: CANDELARIO Reason for Consultation: ABDOMINAL PAIN Present Illness HPI Patient presents with altered mentation. According to my staff she had to be helped into a wheelchair from the car. She was not responsive at that time however after being placed in a gurney she was able to answer questions. She complains of abdominal and genital pain. She states she's having difficulty moving her bowels. She denies any chest pain. She has anxiety. Son multiple medications at this time. She moved her bowels twice yesterday, but small amounts and hard. No fevers. Son states when she is altered this way, she usually has an UTI. She is on Seroquel and apparently did not take it last night. An Accu-Chek was done here that was 134. GI consulted for abdominal pain. Pt seen, awake A&Ox 3 denies any abdominal pain at this time. Mainly, complaining of headache. CT AP was performed showed common hepatic duct dilation of 23mm. MRCP was followed to extrahepatic and central intrahepatic biliary ductal dilatation without definite downstream obstructive process or evidence of intraductal calculi. She presents today with anemia and constipation. Unknown history of endoscopy / colonoscopy. Home Meds Reported Medications Duloxetine Hcl* (CYMBALTA*) 30 Mg Capsule.dr, 30 MG ORAL DAILY, CAP 01/14/18 Hydrocodone Bit/Acetaminophen 10-325* ([place] 10-325*) 1 Each Tablet, 2 TAB ORAL Q6H PRN for For Pain, #10 TAB 0 Refills PRN PAIN 01/14/18 Lidocaine (Lidoderm) 700 Mg Adh..patch, 1 PATCH TOPIC, #7 PATCH Patch(es) may remain in place for up to 12 hours in any 24-hour period. 03/22/13 Temazepam (RESTORIL*) 30 Mg Capsule, 30 MG ORAL BEDTIME, #7 CAP 03/22/13 Quetiapine Fumarate* (SEROQUEL*) 25 Mg Tablet, 25 MG ORAL HS, TAB 03/22/13 [metoprolol] No Conflict Check, 50 MG PO Q12HR 03/21/13 [losartan] No Conflict Check, 100 MG PO DAILY 03/21/13 [hctz] No Conflict Check, PO DAILY 03/21/13 Discontinued Reported Medications Morphine Sulfate* (MS CONTIN*) 30 Mg Tablet.er, 30 MG PO EVERY 12 HOURS 04/14/13 Sitagliptin (Januvia) 100 Mg Tab, 100 MG ORAL DAILY 03/22/13 Rosuvastatin Calcium* (CRESTOR*) 20 Mg Tablet, 20 MG ORAL DAILY 03/22/13 Insulin Aspart* (NOVOLOG*) 100 Unit/1 Ml Insuln.pen, 0 SUBQ, #1 EA 03/22/13 Lorazepam* (LORAZEPAM*) 1 Mg Tablet, 1 MG ORAL PRN, TAB 03/22/13 Pioglitazone Hcl* (ACTOS*) 30 Mg Tablet, 30 MG ORAL DAILY, TAB 03/22/13 Nateglinide (Starlix) 120 Mg Tab, 120 MG PO TID 03/22/13 Oxycodone Hcl (OXYCODONE HCL) 30 Mg Tablet, 15 MG ORAL FIVE TIMES A DAY, TAB 03/22/13 Med list reviewed/reconciled: Yes Allergies: Coded Allergies: CODEINE (Unverified Allergy, Unknown, 08/19/12) AYAAN INHIBITORS (Verified Allergy, 08/18/12) Patient History PMH Narrative Past Medical History: see triage record Past Surgical History: keeley, hysterectomy, other - knee replacement Social History Narrative with her son Reviewed Nursing Documentation: PMH: Agreed; PSxH: Agreed Nursing Documentation-PMH Past Medical History: No History, Except For Hx Cardiac Problems: Yes Hx Hypertension: Yes Hx COPD: Yes Hx Diabetes: Yes Hx Cancer: No Hx Gastrointestinal Problems: Yes Hx Neurological Problems: Yes - ALOC Hx Dizziness: Yes Hx Syncope: Yes Hx Weakness: Yes Social History: Denies: smoking, alcohol use, drug use, other Review of Systems All Other Systems: negative except mentioned in HPI Physical Exam Vital Signs Date Time Temp Pulse Resp B/P (MAP) Pulse Ox O2 Delivery O2 Flow Rate FiO2 01/14/18 12:10 98.4 68 16 201/63 97 Room Air 98.4 Sp02 EP Interpretation: reviewed, normal General Appearance: well appearing, no apparent distress, alert Head: normocephalic EENT: PERRL/EOMI, normal ENT inspection Neck: supple Respiratory: normal breath sounds, no respiratory distress Cardiovascular: normal rate Gastrointestinal: normal inspection, non tender, soft, normal bowel sounds, non -distended Rectal: deferred Genitourinary: no CVA tenderness Musculoskeletal: normal inspection, back normal Neurologic: normal inspection, alert, oriented x3, responsive Psychiatric: normal inspection, judgement/insight normal, memory normal Skin: normal inspection, normal color, no rash, warm/dry, palpation normal, well hydrated Lymphatic: normal inspection, no adenopathy Current Medications Current Medications Medications (Trade) Dose Ordered Sig/Suze Route PRN Reason Start Time Stop Time Status Last Admin Dose Admin Acetaminophen/ Hydrocodone Bitart ([place] 5/325) 1 tab Q6H PRN ORAL For Pain 01/14/18 23:15 01/21/18 23:14 01/16/18 11:04 Clonidine HCl (Catapres Tab) 0.1 mg EVERY 6 HOURS PRN ORAL For SBP>150 01/14/18 23:15 02/13/18 23:14 01/15/18 20:31 Dextrose (Dextrose 50%) 25 ml STAT PRN IV Hypoglycemia 01/14/18 23:15 02/13/18 23:14 Dextrose (Dextrose 50%) 50 ml STAT PRN IV Hypoglycemia 01/14/18 23:15 02/13/18 23:14 Docusate Sodium (Colace) 100 mg THREE TIMES A DAY ORAL 01/15/18 15:00 02/14/18 14:59 Duloxetine HCl (Cymbalta) 30 mg DAILY ORAL 01/15/18 09:00 02/14/18 08:59 01/16/18 08:04 Insulin Aspart (NovoLOG) BEFORE MEALS AND HS SUBQ 01/15/18 06:30 02/14/18 06:29 01/16/18 11:34 Iopamidol (Isovue-300 100ml) 100 ml NOW PRN INJ Radiology Procedure 01/14/18 20:15 Lidocaine (Lidoderm 5% PATCH) 1 patch DAILY TDERMAL 01/15/18 09:00 02/14/18 08:59 01/16/18 08:03 Losartan Potassium (Cozaar) 100 mg DAILY ORAL 01/15/18 09:00 02/14/18 08:59 01/16/18 08:05 Metoprolol Tartrate (Lopressor) 50 mg BID ORAL 01/14/18 23:45 02/13/18 23:44 01/16/18 08:04 Ondansetron HCl (Zofran) 4 mg Q4H PRN IVP Nausea & Vomiting 01/15/18 14:45 02/14/18 14:44 01/15/18 18:28 Pantoprazole (Protonix) 40 mg DAILY ORAL 01/16/18 09:00 02/15/18 08:59 01/16/18 09:00 Quetiapine Fumarate (SEROquel) 25 mg BEDTIME ORAL 01/14/18 23:44 02/13/18 23:43 01/15/18 20:31 Sennosides (Senokot) 1 tab DAILYPRN PRN ORAL Constipation 01/15/18 14:30 02/14/18 14:29 Sodium Chloride 1,000 ml @ 50 mls/hr Q20H IV 01/14/18 23:15 02/13/18 23:14 01/15/18 17:22 Temazepam (Restoril) 30 mg BEDTIME ORAL 01/14/18 23:45 01/21/18 23:44 01/15/18 20:30 GI: Plan Problems: (1) Anemia (2) Constipation (3) Dehydration (4) Abdominal pain Plan APCT reviewed >> common hepatic duct dilation 23 mm MRCP reviewed >> Extrahepatic and central intrahepatic biliary ductal dilatation without definite downstream obstructive process or evidence of intraductal calculi. Suspect on the basis of senescent changes and prior cholecystectomy. symptomatic treatment adv diet anemia work up OB stool r/o GI bleed monitor H&H, prn transfusions bowel regime >> colace + miralax ppi trend LFTs fu labs The patient was seen and examined at bedside and all new and available data was reviewed in the patients chart. I agree with the above findings, impression and plan. (Patient seen earlier today. Signature stamp does not reflect patient encounter time.). - MD Anne-Marie [facility] ATTEND[facility] January 16, 2018 11:51
--- NOTE | 2018-01-16 11:56 | Diagnostic Imaging Report ---
Indication: Abnormal liver function tests, dilated extrahepatic bile ducts seen on recent imaging studies Technique: Coronal and axial single shot fast spin-echo breath-hold, axial T2 FRFSE images were obtained of the abdomen. Patient unable to tolerate any further imaging. Comparison: Reference made to abdomen pelvis CT 01/14/2018 Findings: Exam is very limited due to nonavailability of most of the sequences. As demonstrated on CT, there is marked extrahepatic biliary ductal dilatation, common hepatic duct measuring up to 18 mm in diameter. There is also central intrahepatic biliary ductal dilatation. No definite downstream obstructive lesion is demonstrated; the duct appears to taper at the ampulla. No ampullary or pancreatic mass demonstrated. The gallbladder is surgically absent. No intraductal filling defects are demonstrated. Visualized portions of the liver are unremarkable. The pancreas is atrophic. The spleen, adrenals, kidneys are unremarkable. There may be some consolidation at the lung bases Impression: Very limited exam, as described Extrahepatic and central intrahepatic biliary ductal dilatation without definite downstream obstructive process or evidence of intraductal calculi. Suspect on the basis of senescent changes and prior cholecystectomy. Possible bilateral basilar pulmonary parenchymal consolidation Pancreatic atrophy
[2018-01-16] MEDS ORDERED: Docusate 100mg cap ORAL SCH (18:00)
--- NOTE | 2018-01-16 18:16 | General Surgery Progress Note ---
General Surgery-Progress Note Subjective Symptoms: improved, pain absent, tolerating diet, passing flatus, BM Additional Comments much more awake and alert today. Objective Last 24 Hour Vital Signs Date Time Temp Pulse Resp B/P (MAP) Pulse Ox O2 Delivery O2 Flow Rate FiO2 01/16/18 17:37 98.9 01/16/18 17:37 61 162/67 01/16/18 16:00 98.9 61 21 162/67 95 98.9 01/16/18 16:00 Room Air 01/16/18 14:30 61 149/77 01/16/18 12:09 176/63 01/16/18 12:03 97.9 01/16/18 12:00 97.9 60 60 176/63 95 97.9 01/16/18 12:00 Room Air 01/16/18 11:04 99.0 01/16/18 08:05 143/63 01/16/18 08:04 73 143/63 01/16/18 08:00 99.0 73 18 143/63 95 Room Air 99.0 01/16/18 03:44 97.2 64 20 150/61 96 Room Air 97.2 01/16/18 02:40 98.2 01/15/18 20:31 161/56 01/15/18 19:51 98.2 01/15/18 19:13 98.2 62 20 161/56 95 Room Air 98.2 I&O Intake and Output 01/15/18 01/16/18 19:00 07:00 Intake Total 1090 ml Balance 1090 ml Intake Oral 540 ml IV Total 550 ml # Voids 4 3 # Bowel Movements 2 1 Cardiovascular: RSR Respiratory: clear Abdomen: soft, flat, non-tender, present bowel sounds Extremities: no edema, no tenderness, no cyanosis Plan Problems: (1) Abdominal pain Assessment & Plan: 87F with generalized abdominal pain. improving since presentation to ED. mental status improved. states vague generalized abdominal pain. exam benign. KUB reviewed and non specific. unfortunately she and her exam are not very reliable but overall seem benign CT reviewed and no acute path noted. hernia stable. biliary dilation stable. no acute surgical intervention planned likely constipation bowel regimen okay for diet okay to d/c from surgical standpoint thank you Angel Stubbs January 16, 2018 18:16
[2018-01-16] MEDS ORDERED: Miralax 17gm pkt ORAL SCH (21:00)
[2018-01-17] VITALS: BP 148/60
[2018-01-17 03:38] VITALS: BP 150/78
[2018-01-17] MEDS: Norco 5mg/325mg tab ORAL PRN ×2 (03:58→11:57)
[2018-01-17] MEDS: NovoLOG Insulin Flexpen SUBQ SCH ×2 (05:54→11:56)
[2018-01-17 08:00] VITALS: BP 145/64
[2018-01-17 08:15] VITALS: BP 145/64
[2018-01-17] MEDS: Metoprolol Tartrate 50mg tab ORAL SCH (08:15)
[2018-01-17] MEDS: DULoxetine 30mg cap ORAL SCH (08:15)
[2018-01-17] MEDS: Losartan 50mg tab ORAL SCH (08:15)
[2018-01-17] MEDS: Docusate 100mg cap ORAL SCH (08:16)
[2018-01-17 08:19] LABS: BASOPHILS % (AUTO) 0.5 % (0.0-2.0); EOSINOPHILS % (AUTO) 0.8 % (0.0-3.0); HEMATOCRIT 33.2 % (37.0-47.0); HEMOGLOBIN 10.9 G/DL (12.0-16.0); LYMPHOCYTES % (AUTO) 23.4 % (20.0-45.0); MEAN CORPUSCULAR VOLUME 90 FL (80-99); MONOCYTES % (AUTO) 4.5 % (1.0-10.0); NEUTROPHILS % (AUTO) 70.7 % (45.0-75.0); PLATELET COUNT 219 K/UL (150-450); RED BLOOD COUNT 3.71 M/UL (4.20-5.40); RED CELL DISTRIBUTION WIDTH 12.4 % (11.6-14.8); WHITE BLOOD COUNT 10.8 K/UL (4.8-10.8)
[2018-01-17 08:49] LABS: ANION GAP 9 mmol/L (5-15); BLOOD UREA NITROGEN 15 mg/dL (7-18); CALCIUM 8.3 MG/DL (8.5-10.1); CARBON DIOXIDE 25 MMOL/L (21-32); CHLORIDE 103 MMOL/L (98-107); CREATININE 1.2 MG/DL (0.55-1.30); FERRITIN 45 NG/ML (8-388); POTASSIUM 3.7 MMOL/L (3.5-5.1); SODIUM 137 MMOL/L (136-145)
[2018-01-17 09:12] LABS: % IRON SATURATION 20 % (15-50); IRON 61 ug/dL (50-175); TOTAL IRON BINDING CAPACITY 309 ug/dL (250-450)
--- NOTE | 2018-01-17 09:27 | Pulmonology Progress Note ---
Assessment/Plan Assessment/Plan IMPRESSION: 1. Abdominal pain. Improved. CT and MRI neg 2. Constipation. resolved; seen by GI 3. Dementia. No evidence for dementia. 4. Borderline diabetes mellitus. 5. Hypertension. DISCUSSION: Will dc home Discussed with son Subjective Interval Events: Doing well. tolerated breakfast this Am without problems. Labs normal; MRI Constitutional: Reports: no symptoms HEENT: Repors: no symptoms Respiratory: Reports: no symptoms Cardiovascular: Reports: no symptoms Gastrointestinal/Abdominal: Reports: no symptoms Genitourinary: Reports: no symptoms Allergies: Coded Allergies: CODEINE (Unverified Allergy, Unknown, 08/19/12) AYAAN INHIBITORS (Verified Allergy, 08/18/12) Objective Last 24 Hour Vital Signs Date Time Temp Pulse Resp B/P (MAP) Pulse Ox O2 Delivery O2 Flow Rate FiO2 01/17/18 08:15 67 145/64 01/17/18 08:15 145/64 01/17/18 08:00 Room Air 01/17/18 08:00 98.2 64 18 145/64 95 98.2 01/17/18 03:48 Room Air 01/17/18 03:38 98.1 65 18 150/78 98 98.1 01/17/18 00:00 97.8 51 18 148/60 96 97.8 01/17/18 00:00 Room Air 01/16/18 20:55 60 150/71 Room Air 01/16/18 20:21 176/66 01/16/18 20:00 97.9 54 16 176/66 97 97.9 01/16/18 18:36 98.9 01/16/18 18:00 64 153/82 01/16/18 17:37 98.9 01/16/18 17:37 61 162/67 01/16/18 16:00 98.9 61 21 162/67 95 98.9 01/16/18 16:00 Room Air 01/16/18 14:30 61 149/77 01/16/18 12:09 176/63 01/16/18 12:00 97.9 60 60 176/63 95 97.9 01/16/18 12:00 Room Air 01/16/18 11:04 99.0 Intake and Output 01/16/18 01/17/18 19:00 07:00 Intake Total 660 ml 210 ml Balance 660 ml 210 ml Intake Oral 360 ml 210 ml IV Total 300 ml # Voids 3 4 # Bowel Movements 2 General Appearance: no acute distress HEENT: normocephalic Respiratory/Chest: chest wall non-tender, lungs clear Cardiovascular: normal peripheral pulses, normal rate Abdomen: normal bowel sounds, soft, non tender Laboratory Tests 01/17/18 05:35: White Blood Count 10.8, Red Blood Count 3.71L, Hemoglobin 10.9L, Hematocrit 33.2L, Mean Corpuscular Volume 90, Mean Corpuscular Hemoglobin 29.4, Mean Corpuscular Hemoglobin Concent 32.8, Red Cell Distribution Width 12.4, Platelet Count 219, Mean Platelet Volume 6.7, Neutrophils (%) (Auto) 70.7, Lymphocytes (% ) (Auto) 23.4, Monocytes (%) (Auto) 4.5, Eosinophils (%) (Auto) 0.8, Basophils ( %) (Auto) 0.5, Reticulocyte Count [Pending], Prothrombin Time 10.7, Prothromb Time International Ratio 1.0, Activated Partial Thromboplast Time 32, Sodium Level 137, Potassium Level 3.7, Chloride Level 103, Carbon Dioxide Level 25, Anion Gap 9, Blood Urea Nitrogen 15, Creatinine 1.2, Estimat Glomerular Filtration Rate , Glucose Level 118H, Calcium Level 8.3L, Iron Level 61, Total Iron Binding Capacity 309, Percent Iron Saturation 20, Unsaturated Iron Binding 248, Ferritin 45, Vitamin B12 Level [Pending], Folate [Pending], Thyroid Stimulating Hormone (TSH) 1.110, Free Thyroxine [Pending] Current Medications Medications (Trade) Dose Ordered Sig/Suze Route PRN Reason Start Time Stop Time Status Last Admin Dose Admin Acetaminophen/ Hydrocodone Bitart ([place] 5/325) 1 tab Q6H PRN ORAL For Pain 01/14/18 23:15 01/21/18 23:14 01/17/18 03:58 Clonidine HCl (Catapres Tab) 0.1 mg EVERY 6 HOURS PRN ORAL For SBP>150 01/14/18 23:15 02/13/18 23:14 01/16/18 20:21 Dextrose (Dextrose 50%) 25 ml STAT PRN IV Hypoglycemia 01/14/18 23:15 02/13/18 23:14 Dextrose (Dextrose 50%) 50 ml STAT PRN IV Hypoglycemia 01/14/18 23:15 02/13/18 23:14 Docusate Sodium (Colace) 100 mg THREE TIMES A DAY ORAL 01/15/18 15:00 02/14/18 14:59 Duloxetine HCl (Cymbalta) 30 mg DAILY ORAL 01/15/18 09:00 02/14/18 08:59 01/17/18 08:15 Insulin Aspart (NovoLOG) BEFORE MEALS AND HS SUBQ 01/15/18 06:30 02/14/18 06:29 01/17/18 05:54 Iopamidol (Isovue-300 100ml) 100 ml NOW PRN INJ Radiology Procedure 01/14/18 20:15 Lidocaine (Lidoderm 5% PATCH) 1 patch DAILY TDERMAL 01/15/18 09:00 02/14/18 08:59 01/17/18 08:14 Losartan Potassium (Cozaar) 100 mg DAILY ORAL 01/15/18 09:00 02/14/18 08:59 01/17/18 08:15 Metoprolol Tartrate (Lopressor) 50 mg BID ORAL 01/14/18 23:45 02/13/18 23:44 01/17/18 08:15 Ondansetron HCl (Zofran) 4 mg Q4H PRN IVP Nausea & Vomiting 01/15/18 14:45 02/14/18 14:44 01/15/18 18:28 Pantoprazole (Protonix) 40 mg DAILY ORAL 01/16/18 09:00 02/15/18 08:59 01/17/18 08:15 Polyethylene Glycol (Miralax) 17 gm BEDTIME ORAL 01/16/18 21:00 02/15/18 20:59 01/16/18 20:21 Quetiapine Fumarate (SEROquel) 25 mg BEDTIME ORAL 01/14/18 23:44 02/13/18 23:43 01/16/18 20:21 Sennosides (Senokot) 1 tab DAILYPRN PRN ORAL Constipation 01/15/18 14:30 02/14/18 14:29 Sodium Chloride 1,000 ml @ 50 mls/hr Q20H IV 01/14/18 23:15 02/13/18 23:14 01/16/18 14:15 Temazepam (Restoril) 30 mg BEDTIME ORAL 01/14/18 23:45 5/21/18 23:44 01/16/18 20:21 Roddy Bullock MD January 17, 2018 09:27
--- NOTE | 2018-01-17 10:29 | GI Progress Note ---
Assessment/Plan Problems: (1) Anemia ICD Codes: D64.9 - Anemia, unspecified SNOMED: 930966224 (2) Abdominal pain ICD Codes: R10.9 - Unspecified abdominal pain SNOMED: 98444447 Qualifiers: Qualified Codes: R10.84 - Generalized abdominal pain (3) Delirium ICD Codes: R41.0 - Disorientation, unspecified SNOMED: 3980693 (4) Dehydration ICD Codes: E86.0 - Dehydration SNOMED: 84900068 (5) Constipation ICD Codes: K59.00 - Constipation, unspecified SNOMED: 25040432 Qualifiers: Qualified Codes: K59.00 - Constipation, unspecified Status: stable Status Narrative Discussed with Dr. Ramos. Assessment/Plan APCT reviewed >> common hepatic duct dilation 23 mm MRCP reviewed >> Extrahepatic and central intrahepatic biliary ductal dilatation without definite downstream obstructive process or evidence of intraductal calculi. Suspect on the basis of senescent changes and prior cholecystectomy. okay for DC per GI standpoint symptomatic treatment adv diet anemia work up OB stool r/o GI bleed monitor H&H, prn transfusions bowel regime >> colace + miralax ppi trend LFTs fu labs The patient was seen and examined at bedside and all new and available data was reviewed in the patients chart. I agree with the above findings, impression and plan. (Patient seen earlier today. Signature stamp does not reflect patient encounter time.). - Delvis Ramos MD Subjective Gastrointestinal/Abdominal: Reports: no symptoms Objective Last 24 Hour Vital Signs Date Time Temp Pulse Resp B/P (MAP) Pulse Ox O2 Delivery O2 Flow Rate FiO2 01/17/18 08:15 67 145/64 01/17/18 08:15 145/64 01/17/18 08:00 Room Air 01/17/18 08:00 98.2 64 18 145/64 95 98.2 01/17/18 03:48 Room Air 01/17/18 03:38 98.1 65 18 150/78 98 98.1 01/17/18 00:00 97.8 51 18 148/60 96 97.8 01/17/18 00:00 Room Air 01/16/18 20:55 60 150/71 Room Air 01/16/18 20:21 176/66 01/16/18 20:00 97.9 54 16 176/66 97 97.9 01/16/18 18:36 98.9 01/16/18 18:00 64 153/82 01/16/18 17:37 98.9 01/16/18 17:37 61 162/67 01/16/18 16:00 98.9 61 21 162/67 95 98.9 01/16/18 16:00 Room Air 01/16/18 14:30 61 149/77 01/16/18 12:09 176/63 01/16/18 12:00 97.9 60 60 176/63 95 97.9 01/16/18 12:00 Room Air 01/16/18 11:04 99.0 Intake and Output 01/16/18 01/17/18 19:00 07:00 Intake Total 660 ml 210 ml Balance 660 ml 210 ml Intake Oral 360 ml 210 ml IV Total 300 ml # Voids 3 4 # Bowel Movements 2 Laboratory Tests Test 01/17/18 05:35 White Blood Count 10.8 K/UL (4.8-10.8) Red Blood Count 3.71 M/UL (4.20-5.40) L Hemoglobin 10.9 G/DL (12.0-16.0) L Hematocrit 33.2 % (37.0-47.0) L Mean Corpuscular Volume 90 FL (80-99) Mean Corpuscular Hemoglobin 29.4 PG (27.0-31.0) Mean Corpuscular Hemoglobin Concent 32.8 G/DL (32.0-36.0) Red Cell Distribution Width 12.4 % (11.6-14.8) Platelet Count 219 K/UL (150-450) Mean Platelet Volume 6.7 FL (6.5-10.1) Neutrophils (%) (Auto) 70.7 % (45.0-75.0) Lymphocytes (%) (Auto) 23.4 % (20.0-45.0) Monocytes (%) (Auto) 4.5 % (1.0-10.0) Eosinophils (%) (Auto) 0.8 % (0.0-3.0) Basophils (%) (Auto) 0.5 % (0.0-2.0) Reticulocyte Count Pending Prothrombin Time 10.7 SEC (9.30-11.50) Prothromb Time International Ratio 1.0 (0.9-1.1) Activated Partial Thromboplast Time 32 SEC (23-33) Sodium Level 137 MMOL/L (136-145) Potassium Level 3.7 MMOL/L (3.5-5.1) Chloride Level 103 MMOL/L (98-107) Carbon Dioxide Level 25 MMOL/L (21-32) Anion Gap 9 mmol/L (5-15) Blood Urea Nitrogen 15 mg/dL (7-18) Creatinine 1.2 MG/DL (0.55-1.30) Estimat Glomerular Filtration Rate mL/min (>60) Glucose Level 118 MG/DL (74-106) H Calcium Level 8.3 MG/DL (8.5-10.1) L Iron Level 61 ug/dL (50-175) Total Iron Binding Capacity 309 ug/dL (250-450) Percent Iron Saturation 20 % (15-50) Unsaturated Iron Binding 248 ug/dL (112-346) Ferritin 45 NG/ML (8-388) Vitamin B12 Level 473 PG/ML (193-986) Folate 11.4 NG/ML (8.6-58.9) Thyroid Stimulating Hormone (TSH) 1.110 uiU/mL (0.358-3.740) Free Thyroxine 0.89 NG/DL (0.76-1.46) Height (Feet): 4 Height (Inches): 11.00 Weight (Pounds): 155 General Appearance: WD/WN, no apparent distress, alert Cardiovascular: normal rate Respiratory/Chest: normal breath sounds, no respiratory distress Abdominal Exam: normal bowel sounds, non tender, soft Extremities: non-tender Jairo Xie NP January 17, 2018 10:29
[2018-01-17] MEDS ORDERED: Tubing IV Secondary IV ONE (12:19)
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
== END 2018-01-17 12:20 | disposition home or self-care (01) | DRG 392 ==
LOC: EMR 12:52 → EDBEDREQ 15:20 → EDBEDREQSVC 17:14 → 4W 18:00 → EDBEDREQ 19:41 → 4W 23:50
DX: R10.9 Unspecified abdominal pain (principal); K59.00 Constipation, unspecified; F03.90 Unspecified dementia, unspecified severity, without behavioral disturbance, psychotic disturbance, mood disturbance, and anxiety; I10 Essential (primary) hypertension; E11.9 Type 2 diabetes mellitus without complications; D64.9 Anemia, unspecified; E86.0 Dehydration; Z88.6 Allergy status to analgesic agent; Z88.8 Allergy status to other drugs, medicaments and biological substances; Z96.649 Presence of unspecified artificial hip joint; R41.0 Disorientation, unspecified; J44.9 Chronic obstructive pulmonary disease, unspecified; Z90.49 Acquired absence of other specified parts of digestive tract
CPT/HCPCS: 36415; 71045; 74018; 74177; 74181; 80048; 80053; 81003; 82607; 82728; 82746; 82962; 83540; 83550; 83690; 84439; 84443; 84484; 85025; 85044; 85610; 85730; 93005; 99285; J1815; J2405; J2765

== ENCOUNTER 2018-07-26 23:28 | Inpatient (IN) | payer MEDICARE, MEDICAID ==
[~2018-07-26] VITALS: Ht 160 cm; Wt 59.0 kg
[~2018-07-26 23:28] MED LIST changes: +CYMBALTA30 MG ORAL; +NORCO 10-325 T1 EACH ORAL
[2018-07-26 23:39] VITALS: BP 116/61
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
[2018-07-27] VITALS (7 sets, daily range): BP systolic 92–132; BP diastolic 42–57
[2018-07-27] MEDS ORDERED: Albuterol ud Inhalation HHN ONE
[2018-07-27 00:28] LABS: BASOPHILS % (AUTO) 0.9 % (0.0-2.0); EOSINOPHILS % (AUTO) 2.8 % (0.0-3.0); HEMATOCRIT 36.2 % (37.0-47.0); HEMOGLOBIN 12.3 G/DL (12.0-16.0); LYMPHOCYTES % (AUTO) 31.3 % (20.0-45.0); MEAN CORPUSCULAR VOLUME 91 FL (80-99); MONOCYTES % (AUTO) 4.4 % (1.0-10.0); NEUTROPHILS % (AUTO) 60.7 % (45.0-75.0); PLATELET COUNT 122 K/UL (150-450); RED BLOOD COUNT 3.99 M/UL (4.20-5.40); RED CELL DISTRIBUTION WIDTH 13.5 % (11.6-14.8); WHITE BLOOD COUNT 8.7 K/UL (4.8-10.8)
--- NOTE | 2018-07-27 00:31 | Diagnostic Imaging Report ---
EXAM: XR Chest, 1 View CLINICAL HISTORY: SOB TECHNIQUE: Frontal view of the chest. COMPARISON: 01/14/2018. FINDINGS: Limitations: Limited due to suboptimal positioning. Lungs: Left basilar atelectasis/infiltrates. Possible mild pulmonary vascular congestion/edema. Pleural space: Unremarkable. No pneumothorax. Heart: Cardiomegaly. Mediastinum: Unremarkable. Bones/joints: Unremarkable. IMPRESSION: Left basilar atelectasis/infiltrates. Possible mild pulmonary vascular congestion/edema.
[2018-07-27 00:35] LABS: APPEARANCE,URINE CLEAR; BILIRUBIN, URINE NEGATIVE (NEGATIVE); COLOR,URINE PALE YELLOW; GLUCOSE, URINE (UA) NEGATIVE (NEGATIVE); KETONES,URINE NEGATIVE (NEGATIVE); LEUKOCYTE ESTERASE ,URINE 3+ (NEGATIVE); NITRITE,URINE POSITIVE (NEGATIVE); PH,URINE 7 (4.5-8.0); PROTEIN,URINE NEGATIVE (NEGATIVE); UROBILINOGEN,URINE NORMAL MG/DL (0.0-1.0)
[2018-07-27 00:35] LABS: ANION GAP 8 mmol/L (5-15); BLOOD UREA NITROGEN 30 mg/dL (7-18); CALCIUM 8.7 MG/DL (8.5-10.1); CARBON DIOXIDE 27 MMOL/L (21-32); CHLORIDE 101 MMOL/L (98-107); CREATININE 1.5 MG/DL (0.55-1.30); POTASSIUM 5.6 MMOL/L (3.5-5.1); SODIUM 136 MMOL/L (136-145)
[2018-07-27] MEDS ORDERED: cefTRIAXone 1 GM in NS 55 ML IVPB ONE (01:00)
[2018-07-27] MEDS ORDERED: Albuterol/Ipratropium 3ml neb HHN PRN (01:15)
[2018-07-27] MEDS: NovoLOG Insulin Flexpen SUBQ SCH ×4 (06:54→20:57)
[2018-07-27 07:55] LABS: BASOPHILS % (AUTO) 0.6 % (0.0-2.0); EOSINOPHILS % (AUTO) 2.5 % (0.0-3.0); HEMATOCRIT 37.3 % (37.0-47.0); HEMOGLOBIN 12.8 G/DL (12.0-16.0); LYMPHOCYTES % (AUTO) 24.9 % (20.0-45.0); MEAN CORPUSCULAR VOLUME 90 FL (80-99); MONOCYTES % (AUTO) 4.1 % (1.0-10.0); NEUTROPHILS % (AUTO) 67.9 % (45.0-75.0); PLATELET COUNT 211 K/UL (150-450); RED BLOOD COUNT 4.12 M/UL (4.20-5.40); RED CELL DISTRIBUTION WIDTH 13.4 % (11.6-14.8); WHITE BLOOD COUNT 11.9 K/UL (4.8-10.8)
[2018-07-27 08:30] LABS: ANION GAP 12 mmol/L (5-15); BLOOD UREA NITROGEN 28 mg/dL (7-18); CALCIUM 8.8 MG/DL (8.5-10.1); CARBON DIOXIDE 25 MMOL/L (21-32); CHLORIDE 102 MMOL/L (98-107); CREATININE 1.5 MG/DL (0.55-1.30); POTASSIUM 4.8 MMOL/L (3.5-5.1); SODIUM 139 MMOL/L (136-145)
[2018-07-27] MEDS ORDERED: Enoxaparin 30mg Inj SUBQ SCH (09:00)
[2018-07-27] MEDS: Metoprolol Tartrate 50mg tab ORAL SCH ×2 (09:00→20:27)
[2018-07-27] MEDS: DULoxetine 30mg cap ORAL SCH (09:24)
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
[2018-07-27] MEDS: cefTRIAXone 1 GM in D5W 55 ML IVPB SCH (10:50)
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
[2018-07-27] MEDS ORDERED: Norco 5mg/325mg tab ORAL PRN ×2 (12:30)
[2018-07-27] MEDS: Norco 5mg/325mg tab ORAL PRN ×2 (13:27→17:34)
[2018-07-28] VITALS: BP 106/57
[2018-07-28] MEDS: Norco 5mg/325mg tab ORAL PRN ×5 (03:04→20:59)
[2018-07-28 04:00] VITALS: BP 125/53
[2018-07-28] MEDS: NovoLOG Insulin Flexpen SUBQ SCH ×4 (06:36→20:50)
[2018-07-28 07:07] LABS: BASOPHILS % (AUTO) 0.7 % (0.0-2.0); EOSINOPHILS % (AUTO) 0.6 % (0.0-3.0); HEMATOCRIT 31.1 % (37.0-47.0); HEMOGLOBIN 10.3 G/DL (12.0-16.0); LYMPHOCYTES % (AUTO) 22.2 % (20.0-45.0); MEAN CORPUSCULAR VOLUME 89 FL (80-99); NEUTROPHILS % (AUTO) 73.5 % (45.0-75.0); PLATELET COUNT 151 K/UL (150-450); RED CELL DISTRIBUTION WIDTH 12.8 % (11.6-14.8)
[2018-07-28 07:31] LABS: ANION GAP 9 mmol/L (5-15); BLOOD UREA NITROGEN 25 mg/dL (7-18); CALCIUM 8.1 MG/DL (8.5-10.1); CARBON DIOXIDE 23 MMOL/L (21-32); CHLORIDE 104 MMOL/L (98-107); CREATININE 1.3 MG/DL (0.55-1.30); POTASSIUM 4.3 MMOL/L (3.5-5.1); SODIUM 136 MMOL/L (136-145)
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
[2018-07-28 08:06] VITALS: BP 137/51
[2018-07-28] MEDS: Metoprolol Tartrate 50mg tab ORAL SCH ×2 (08:08→20:49)
[2018-07-28] MEDS: DULoxetine 30mg cap ORAL SCH (08:08)
[2018-07-28] MEDS: cefTRIAXone 1 GM in D5W 55 ML IVPB SCH (08:08)
--- NOTE | 2018-07-28 09:01 | Diagnostic Imaging Report ---
EXAM: XR Chest, 1 View CLINICAL HISTORY: Shortness of breath TECHNIQUE: Frontal view of the chest. COMPARISON: Chest x-ray dated 07/27/18 FINDINGS: Lungs: Stable appearance of mildly increased interstitial markings. Subsegmental atelectasis in the left lung base, unchanged. The lungs are otherwise clear without focal consolidation. Pleural space: Unremarkable. The costophrenic angles are sharp. No visible pneumothorax. Heart: Mild cardiomegaly. Mediastinum: Unremarkable. Bones/joints: Unremarkable. Vasculature: Atherosclerotic calcifications are noted within the aortic arch. IMPRESSION: 1. Stable appearance of mildly increased interstitial markings. This is nonspecific but may suggest mild pulmonary vascular congestion or a mild interstitial pneumonitis. 2. Subsegmental atelectasis in the left lung base, unchanged.
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
[2018-07-28 12:00] VITALS: BP 126/48
[2018-07-28 16:00] VITALS: BP 138/78
[2018-07-28 20:00] VITALS: BP 143/69
[2018-07-29] VITALS (7 sets, daily range): BP systolic 135–175; BP diastolic 50–71
[2018-07-29] MEDS: Norco 5mg/325mg tab ORAL PRN ×2 (02:43→06:44)
[2018-07-29] MEDS: NovoLOG Insulin Flexpen SUBQ SCH ×4 (06:07→20:49)
[2018-07-29 07:13] LABS: BASOPHILS % (AUTO) 0.7 % (0.0-2.0); EOSINOPHILS % (AUTO) 0.6 % (0.0-3.0); HEMATOCRIT 29.8 % (37.0-47.0); HEMOGLOBIN 9.8 G/DL (12.0-16.0); LYMPHOCYTES % (AUTO) 26.7 % (20.0-45.0); MEAN CORPUSCULAR VOLUME 89 FL (80-99); MONOCYTES % (AUTO) 2.8 % (1.0-10.0); NEUTROPHILS % (AUTO) 69.1 % (45.0-75.0); PLATELET COUNT 261 K/UL (150-450); RED BLOOD COUNT 3.35 M/UL (4.20-5.40); RED CELL DISTRIBUTION WIDTH 12.6 % (11.6-14.8); WHITE BLOOD COUNT 8.6 K/UL (4.8-10.8)
[2018-07-29 07:34] LABS: ANION GAP 10 mmol/L (5-15); BLOOD UREA NITROGEN 17 mg/dL (7-18); CALCIUM 8.2 MG/DL (8.5-10.1); CARBON DIOXIDE 23 MMOL/L (21-32); CHLORIDE 100 MMOL/L (98-107); CREATININE 1.1 MG/DL (0.55-1.30); SODIUM 133 MMOL/L (136-145)
[2018-07-29] MEDS: DULoxetine 30mg cap ORAL SCH (09:25)
[2018-07-29] MEDS: cefTRIAXone 1 GM in D5W 55 ML IVPB SCH (09:25)
[2018-07-29] MEDS: Metoprolol Tartrate 50mg tab ORAL SCH ×2 (09:30→20:44)
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
[2018-07-29] MEDS: HYDROcodone/Acetamin 10/325 tab ORAL PRN ×2 (12:16→20:43)
[2018-07-29] MEDS ORDERED: Flu Vaccine High-Dose for Pts 65 Years and Older IM ONE (13:30)
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
[2018-07-30] VITALS: BP 127/58
[2018-07-30] MEDS: HYDROcodone/Acetamin 10/325 tab ORAL PRN ×3 (01:05→09:26)
[2018-07-30 04:00] VITALS: BP 145/74
[2018-07-30] MEDS: NovoLOG Insulin Flexpen SUBQ SCH (06:40)
[2018-07-30 08:00] VITALS: BP 118/47
[2018-07-30 08:48] VITALS: BP 118/47
[2018-07-30] MEDS: DULoxetine 30mg cap ORAL SCH (08:48)
[2018-07-30] MEDS: Metoprolol Tartrate 50mg tab ORAL SCH (08:48)
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
== END 2018-07-30 11:30 | DRG 918 ==
LOC: EDBD 23:28 → EMR 23:38 → 4E 23:47 → EDBEDREQ 07-27 00:42 → 4E 07-27 01:34
DX: T59.811A Toxic effect of smoke, accidental (unintentional), initial encounter (principal); J68.0 Bronchitis and pneumonitis due to chemicals, gases, fumes and vapors; E87.2 Acidosis; N39.0 Urinary tract infection, site not specified; N17.9 Acute kidney failure, unspecified; J70.5 Respiratory conditions due to smoke inhalation; Y92.009 Unspecified place in unspecified non-institutional (private) residence as the place of occurrence of the external cause; X00.1XXA Exposure to smoke in uncontrolled fire in building or structure, initial encounter; Z23 Encounter for immunization; Z88.6 Allergy status to analgesic agent; Z88.8 Allergy status to other drugs, medicaments and biological substances; E11.9 Type 2 diabetes mellitus without complications; E87.5 Hyperkalemia; I12.9 Hypertensive chronic kidney disease with stage 1 through stage 4 chronic kidney disease, or unspecified chronic kidney disease; N18.3 Chronic kidney disease, stage 3 (moderate); E11.22 Type 2 diabetes mellitus with diabetic chronic kidney disease; M54.5 Low back pain; F03.90 Unspecified dementia, unspecified severity, without behavioral disturbance, psychotic disturbance, mood disturbance, and anxiety; D64.9 Anemia, unspecified
CPT/HCPCS: 36415; 36600; 71045; 80048; 81001; 82803; 82962; 84484; 85025; 87086; 87181; 94640; 94664; 94760; 99285; J1815